=== PATIENT | female | born 1965 | race Caucasian/White ===

== ENCOUNTER 2016-11-10 17:34 | Emergency (ER) | payer MEDICARE, MEDICAID ==
[~2016-11-10] VITALS: Ht 170.2 cm; Wt 107.5 kg
[2016-11-10] MEDS ORDERED: KETOROLAC 30 MG/ML VIAL ONE (17:40)
[2016-11-10] MEDS ORDERED: ONDANSETRON 4 MG/2 ML (SDV) Z0FRAN ONE (17:40)
[2016-11-10] MEDS ORDERED: fentaNYL INJECTION 100 MCG/2 ML AMP IVP PRN (17:45)
[2016-11-10] MEDS ORDERED: NS IV 1000 ML 1,000 ML IV SCH (17:45)
[2016-11-10] MEDS ORDERED: KETOROLAC 30 MG/ML VIAL IVP ONE (17:45)
[2016-11-10] MEDS ORDERED: ONDANSETRON 4 MG/2 ML (SDV) Z0FRAN IVP ONE (17:45)
[2016-11-10 17:53] LABS: BASOPHILS % (AUTO) 0 % (0-10); EOSINOPHILS # (AUTO) 0.2 10^3/uL (0.0-0.3); EOSINOPHILS % (AUTO) 3 % (0-10); LYMPHOCYTES # (AUTO) 2.6 X 10^3 (1.0-4.0); LYMPHOCYTES % (AUTO) 28 % (12-44); MEAN CORPUSCULAR HEMOGLOBIN 30 PG (25-34); MEAN CORPUSCULAR HGB CONC 33 G/DL (32-36); MEAN CORPUSCULAR VOLUME 89 FL (80-99); MEAN PLATELET VOLUME 9.7 FL (7.4-10.4); MONOCYTES # (AUTO) 0.7 X 10^3 (0.0-1.0); MONOCYTES % (AUTO) 7 % (0-12); NEUTROPHILS # (AUTO) 5.7 X 10^3 (1.8-7.8); NEUTROPHILS % (AUTO) 62 % (42-75); PLATELET COUNT 327 10^3/uL (130-400); RED BLOOD COUNT 4.71 10^6/uL (4.35-5.85); RED CELL DISTRIBUTION WIDTH 13.5 % (10.0-14.5); WHITE BLOOD COUNT 9.2 10^3/uL (4.3-11.0)
--- NOTE | 2016-11-10 17:58 | ED Abdominal Pain ---
General Stated Complaint: LT SIDED ABDOMINAL PAINS,VOMITING Source of Information: Patient History of Present Illness Time Seen By Provider: 17:45 Initial Comments C/O SUDDEN ONSET OF SEVERE LLQ PAIN RADIATING TO LEFT FLANK C/O NAUSEA AND VOMITING DUE TO PAIN NOTHING WORSENS OR IMPROVES PAIN HAS HAD KIDNEY STONE X 1 YEARS AGO, BUT WAS NOT NEARLY THIS BAD HAS NOT TAKEN ANYTHING FOR PAIN PT TRAVELING FROM HOME IN [place] TO [place], [place] WAY BACK HOME Allergies and Home Medications Allergies Coded Allergies: Penicillins (Verified Allergy, Unknown, 11/10/16) morphine (Verified Allergy, Unknown, 11/10/16) Home Medications Amlodipine Bes/Olmesartan Med 1 Each Tablet, Unknown Dose PO DAILY, (Reported) Aspirin 81 Mg Tablet.dr, 81 MG PO DAILY, (Reported) Ciprofloxacin HCl 500 Mg Tablet, 500 MG PO BID, #20 Prescribed by: JUNAID SALMERON on 11/10/161834 Hydrocodone/Ibuprofen 1 Each Tablet, 1-2 EACH PO Q4H, #20 Prescribed by: JUNAID SALMERON on 11/10/161834 Levothyroxine Sodium 112 Mcg Tablet, Unknown Dose PO DAILY, (Reported) Ondansetron 4 Mg Tab.rapdis, 4 MG PO Q4H, #10 Prescribed by: JUNAID SALMERON on 11/10/161834 Tamsulosin HCl 0.4 Mg Cap, 0.4 MG PO DAILY, #10 Prescribed by: JUNAID SALMERON on 11/10/161834 [Cholesterol Pill] , Unknown Dose PO DAILY, (Reported) Review of Systems Constitutional: no symptoms reported Respiratory: No Symptoms Reported Cardiovascular: No Symptoms Reported Gastrointestinal: See HPI, Abdominal Pain, Nausea, Vomiting Genitourinary: No Symptoms Reported Musculoskeletal: see HPI, back pain Skin: no symptoms reported Psychiatric/Neurological: No Symptoms Reported Endocrine: No Symptoms Reported Hematologic/Lymphatic: No Symptoms Reported Past Iwcahxn-Zlbsas-Rogmgv Hx Patient Social History Alcohol Use: Occasionally Uses Recreational Drug Use: No (KEITH) Smoking Status: Current Everyday Smoker ( 1 1/2 PPD) Type Used: Cigarettes Recent Foreign Travel: No Contact w/Someone Who Travel: No Surgeries HX Surgeries: Yes (BACK SURGERY X 7, C-SPINE SURGERY; HYST/BSO) Surgeries: Hysterectomy, Orthopedic Respiratory Hx Respiratory Disorders: No Cardiovascular Hx Cardiac Disorders: Yes Cardiac Disorders: High Cholesterol, Hypertension Neurological Hx Neurological Disorders: 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 Genitourinary Hx Genitourinary Disorders: Yes Genitourinary Disorders: Kidney Stones Gastrointestinal Hx Gastrointestinal Disorders: No Musculoskeletal Hx Musculoskeletal Disorders: Yes (CHRONIC BACK AND NECK PAIN) Musculoskeletal Disorders: Chronic Back Pain Endocrine Hx Endocrine Disorders: Yes Endocrine Disorders: Hypothyroidsim HEENT HX ENT Disorders: No Cancer Hx Cancer: No Psychosocial Hx Psychiatric Problems: No Integumentary HX Skin/Integumentary Disorder: No Blood Transfusions Hx Blood Disorders: No Physical Exam Vital Signs VS - Last 72 Hours, by Label 11/10/16 11/10/16 17:45 18:57 Temp 97.3 Pulse 63 63 Resp 18 18 B/P (MAP) 158/95 Pulse Ox 94 94 Capillary Refill : General Appearance: obese, other (WAILING, HOLDING LEFT ABDOMEN) HEENT: other (EDENTULOUS) Respiratory: normal breath sounds, no respiratory distress, no accessory muscle use Cardiovascular: regular rate, rhythm, no murmur Gastrointestinal: normal bowel sounds, soft, tenderness (LLQ/LEFT MID ABDOMEN AND LEFT FLANK) Back: CVA tenderness (L) Neurologic/Psychiatric: 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, no motor/sensory deficits, alert, oriented x 3 Skin: normal color, warm/dry Progress/Results/Core Measures Results/Orders Lab Results Laboratory Tests Test 11/10/16 17:40 11/10/16 18:16 Range/Units White Blood Count 9.2 4.3-11.0 10^3/uL Red Blood Count 4.71 4.35-5.85 10^6/uL Hemoglobin 13.9 11.5-16.0 G/DL Hematocrit 42 35-52 % Mean Corpuscular Volume 89 80-99 FL Mean Corpuscular Hemoglobin 30 25-34 PG Mean Corpuscular Hemoglobin Concent 33 32-36 G/DL Red Cell Distribution Width 13.5 10.0-14.5 % Platelet Count 327 130-400 10^3/uL Mean Platelet Volume 9.7 7.4-10.4 FL Neutrophils (%) (Auto) 62 42-75 % Lymphocytes (%) (Auto) 28 12-44 % Monocytes (%) (Auto) 7 0-12 % Eosinophils (%) (Auto) 3 0-10 % Basophils (%) (Auto) 0 0-10 % Neutrophils # (Auto) 5.7 1.8-7.8 X 10^3 Lymphocytes # (Auto) 2.6 1.0-4.0 X 10^3 Monocytes # (Auto) 0.7 0.0-1.0 X 10^3 Eosinophils # (Auto) 0.2 0.0-0.3 10^3/uL Basophils # (Auto) 0.0 0.0-0.1 10^3/uL Sodium Level 142 135-145 MMOL/L Potassium Level 3.4 L 3.6-5.0 MMOL/L Chloride Level 104 98-107 MMOL/L Carbon Dioxide Level 25 21-32 MMOL/L Anion Gap 13 5-14 MMOL/L Blood Urea Nitrogen 15 7-18 MG/DL Creatinine 0.82 0.60-1.30 MG/DL Estimat Glomerular Filtration Rate > 60 BUN/Creatinine Ratio 18 Glucose Level 138 H 70-105 MG/DL Calcium Level 9.6 8.5-10.1 MG/DL Total Bilirubin 1.1 H 0.1-1.0 MG/DL Aspartate Amino Transf (AST/SGOT) 27 5-34 U/L Alanine Aminotransferase (ALT/SGPT) 23 0-55 U/L Alkaline Phosphatase 121 40-136 U/L Total Protein 7.5 6.4-8.2 GM/DL Albumin 4.2 3.2-4.5 GM/DL Urine Color YELLOW Urine Clarity VERY CLOUDY H Urine pH 6.5 5-9 Urine Specific [place] 1.020 1.016-1.022 Urine Protein 2+ H NEGATIVE Urine Glucose (UA) NEGATIVE NEGATIVE Urine Ketones 1+ H NEGATIVE Urine Nitrite NEGATIVE NEGATIVE Urine Bilirubin NEGATIVE NEGATIVE Urine Urobilinogen 12 H NORMAL MG/DL Urine Leukocyte Esterase 1+ H NEGATIVE Urine RBC (Auto) 5+ H NEGATIVE Urine RBC TNTC H /HPF Urine WBC 0-2 /HPF Urine Squamous Epithelial Cells 2-5 /HPF Urine Crystals NONE /LPF Urine Bacteria FEW H /HPF Urine Casts NONE /LPF Urine Mucus NEGATIVE /LPF Urine Culture Indicated NO Urine Opiates Screen NEGATIVE NEGATIVE Urine Oxycodone Screen POSITIVE H NEGATIVE Urine Methadone Screen NEGATIVE NEGATIVE Urine Propoxyphene Screen NEGATIVE NEGATIVE Urine Barbiturates Screen NEGATIVE NEGATIVE Ur Tricyclic Antidepressants Screen NEGATIVE NEGATIVE Urine Phencyclidine Screen NEGATIVE NEGATIVE Urine Amphetamines Screen NEGATIVE NEGATIVE Urine Methamphetamines Screen NEGATIVE NEGATIVE Urine Benzodiazepines Screen NEGATIVE NEGATIVE Urine Cocaine Screen NEGATIVE NEGATIVE Urine Cannabinoids Screen NEGATIVE NEGATIVE My Orders Orders - JUNAID SALMERON DO Abdomen/Kub [place] (11/10/16 17:48) Orphenadrine Injection (Norflex Injectio (11/10/16 18:45) Diphenhydramine Injection (Benadryl Inje (11/10/16 18:45) Alfuzosin Tablet (Uroxatral Tablet) (11/10/16 18:45) Hydrocodone/Apap 10/325 Tablet (Lortab 1 (11/10/16 18:45) Medications Given in ED Current Medications Medications Dose Ordered Sig/Brenda Route Start Time Stop Time Status Last Admin Dose Admin Acetaminophen/ Hydrocodone Bitart 1 ea ONCE ONCE PO 11/10/16 18:45 11/10/16 18:46 DC 11/10/16 18:53 1 EA Diphenhydramine HCl 50 mg ONCE ONCE IVP 11/10/16 18:45 11/10/16 18:46 DC 11/10/16 18:53 50 MG Ketorolac Tromethamine 30 mg ONCE ONCE IVP 11/10/16 17:45 11/10/16 17:47 DC 11/10/16 17:46 30 MG Ondansetron HCl 4 mg ONCE ONCE IVP 11/10/16 17:45 11/10/16 17:47 DC 11/10/16 17:46 8 MG Orphenadrine Citrate 60 mg ONCE ONCE IV 11/10/16 18:45 11/10/16 18:46 DC 11/10/16 18:53 60 MG Vital Signs/I&O Vital Sign - Last 12Hours 11/10/16 11/10/16 17:45 18:57 Temp 97.3 Pulse 63 63 Resp 18 18 B/P (MAP) 158/95 Pulse Ox 94 94 Intake and Output 11/11/16 00:00 Intake Total 1000 ml Balance 1000 ml Progress Note : Progress Note SYMPTOMS EASED WITH MEDICATIONS PT ADVISED OF NEED TO FOLLOW UP WITH HER PCP FOR FURTHER EVALUATION OF LUNG NODULE SOON POSSIBLE--CALL IN AM FOR APPOINTMENT Diagnostic Imaging Comments KUB--NO ACUTE PROCESS CT ABDOMEN/PELVIS--2 MM STONE IN PROXIMAL LEFT URETER WITH MILD HYDRONEPHROSIS, 4 MM MICRONODULE RML, DIVERTICULAR DISEASE PER RADIOLOGIST REPORTS @ 1838 Reviewed: Reviewed by Me Departure Impression Impression: Primary Impression: Left ureteral stone Additional Impression: Nodule of right lung Disposition: HOME, SELF-CARE Condition: Improved Departure-Patient Inst. Referrals: NO,LOCAL PHYSICIAN (PCP/Family) Primary Care Physician Patient Instructions: Kidney Stones (DC), Single Pulmonary Nodule Add. Discharge Instructions: STRAIN ALL URINE--RETURN ANY STONES TO YOUR DR'S OFFICE LOTS OF CLEAR LIQUIDS FOLLOW UP WITH YOUR DR SOON POSSIBLE--CALL IN AM FOR APPOINTMENT GO TO NEAREST ER IF SYMPTOMS WORSEN Scripts Hydrocodone/Ibuprofen (Hydrocodone-Ibuprofen 7.5-200) 1 Each Tablet 1-2 EACH PO Q4H for Pain, #20 TAB Prov: JUNAID SALMERON DO 11/10/16 Tamsulosin HCl (Flomax) 0.4 Mg Cap 0.4 MG PO DAILY, #10 CAP Prov: JUNAID SALMERON DO 11/10/16 Ciprofloxacin HCl (Cipro) 500 Mg Tablet 500 MG PO BID, #20 TAB Prov: JUNAID SALMERON DO 11/10/16 Ondansetron (Zofran Odt) 4 Mg Tab.rapdis 4 MG PO Q4H for Nausea/Vomiting, #10 TAB Prov: JUNAID SALMERON DO 11/10/16 JUNAID SALMERON DO Nov 10, 2016 17:57
[2016-11-10] MEDS ORDERED: CHOLESTEROL PILL PO (17:59)
[2016-11-10] MEDS ORDERED: LEVO112T55 PO (17:59)
[2016-11-10] MEDS ORDERED: ASPI-586 PO (17:59)
[2016-11-10] MEDS ORDERED: AMLO1TAB52 PO (17:59)
[2016-11-10 18:11] LABS: ALANINE AMINOTRANSFERASE 23 U/L (0-55); ALBUMIN 4.2 GM/DL (3.2-4.5); ANION GAP 13 MMOL/L (5-14); ASPARTATE AMINO TRANSFERASE 27 U/L (5-34); BILIRUBIN,TOTAL 1.1 MG/DL (0.1-1.0); BLOOD UREA NITROGEN 15 MG/DL (7-18); BUN/CREATININE RATIO 18; CALCIUM 9.6 MG/DL (8.5-10.1); CARBON DIOXIDE 25 MMOL/L (21-32); CHLORIDE 104 MMOL/L (98-107); CREATININE SERUM 0.82 MG/DL (0.60-1.30); GFR ESTIMATED > 60; GLUCOSE 138 MG/DL (70-105); POTASSIUM 3.4 MMOL/L (3.6-5.0); SODIUM 142 MMOL/L (135-145); TOTAL PROTEIN 7.5 GM/DL (6.4-8.2)
[2016-11-10 18:27] LABS: BILIRUBIN,URINE NEGATIVE (NEGATIVE); KETONES,URINE 1+ (NEGATIVE); LEUKOCYTE ESTERASE ,URINE 1+ (NEGATIVE); NITRITE,URINE NEGATIVE (NEGATIVE); PH,URINE 6.5 (5-9); PROTEIN,URINE 2+ (NEGATIVE); UROBILINOGEN,URINE 12 MG/DL (NORMAL)
--- NOTE | 2016-11-10 18:27 | Diagnostic Imaging Report ---
INDICATION: Left leg pain. FINDINGS: Supine views of the abdomen show normal bowel gas pattern. No mass or calculus is evident. There are changes of prior laminectomy and fusion in the upper lumbar spine. There is scoliosis. IMPRESSION: No acute abnormality is seen. Dictated by: Dictated on workstation # [id number]
--- NOTE | 2016-11-10 18:31 | Diagnostic Imaging Report ---
PROCEDURE: CT urinary tract, rule out kidney stone. TECHNIQUE: Multiple contiguous axial images were obtained through the abdomen and pelvis without the use of intravenous contrast. INDICATION: Left flank pain. History kidney stones. COMPARISON: None. FINDINGS: Included views of the lung bases show a 4 mm micronodular density within the included portions of the right middle lobe (image 3, series 3). CT ABDOMEN: A 2 mm calculus is noted within the proximal left collecting system near the UPJ (image 50, series 3). There may be slight proximal hydronephrosis. No renal or ureteral calculi are seen on the right. Additionally, there is no hydronephrosis or other evidence of obstruction on the right. No renal mass type lesions are seen on this noncontrast exam. The liver, spleen, pancreas, and adrenal glands have an unremarkable noncontrast CT appearance. Small bowel loops are nondistended. A normal appendix is identified. There is colonic diverticulosis, but no CT evidence of acute diverticulitis. There is moderate calcified aortic and arterial atherosclerosis. Bony structures show no acute abnormalities. Postsurgical changes of the lumbar spine are noted. CT PELVIS: The urinary bladder is unopacified. No calculi are seen within the bladder. There is no loculated fluid collection, free fluid, or free air within the pelvis. No abnormal lymph nodes are seen. Bony structures show no acute abnormalities. IMPRESSION: 1. Punctate 2 mm calculus at the left UPJ resulting in slight proximal hydronephrosis. 2. Moderate calcified aortic and arterial atherosclerosis. Correlation for underlying risk factors is recommended. 3. A 4 mm micronodule within the included portions of the right middle lobe. If patient is in a high-risk category such as history of smoking, a one-year followup is recommended. Alternatively, if the patient is in a low-risk category, no further followup may be indicated. 4. Colonic diverticulosis, but no CT evidence of acute diverticulitis. Dictated by: Dictated on workstation # [id number]
[2016-11-10] MEDS ORDERED: TAMS0.4C98 PO (18:35)
[2016-11-10] MEDS ORDERED: ONDA4TAB8 PO (18:35)
[2016-11-10] MEDS ORDERED: CIPR-225 PO (18:35)
[2016-11-10] MEDS ORDERED: HYDR-87 PO (18:35)
[2016-11-10 18:45] LABS: WBC,URINE 0-2 /HPF
[2016-11-10] MEDS ORDERED: HYDROcodone/APAP 10 MG/325 MG (LORTAB) TAB PO ONE (18:45)
[2016-11-10] MEDS ORDERED: diphenhydrAMINE 50 MG/ML INJ (BENADRYL) IVP ONE (18:45)
[2016-11-10] MEDS ORDERED: ALFUZOSIN HCL 10 MG TAB (UROXATRAL) PO SCH (18:45)
[2016-11-10] MEDS ORDERED: ORPHENADRINE 60 MG/2 ML (NORFLEX) AMP IV ONE (18:45)
[2016-11-10 18:57] VITALS: BP 158/95
== END 2016-11-10 19:07 | disposition home or self-care (01) ==
LOC: ER 17:37
DX: N20.1 Calculus of ureter (principal); R91.1 Solitary pulmonary nodule; E78.00 Pure hypercholesterolemia, unspecified; I10 Essential (primary) hypertension; E03.9 Hypothyroidism, unspecified; F17.210 Nicotine dependence, cigarettes, uncomplicated; Z90.710 Acquired absence of both cervix and uterus; Z79.82 Long term (current) use of aspirin; Z87.442 Personal history of urinary calculi
CPT/HCPCS: 36415; 74000; 74176; 80053; 80306; 81000; 85025; 96361; 96374; 96375